=== PATIENT | female | born 1965 | race Two or more races ===

== ENCOUNTER 2016-05-06 09:05 | Day surgery (SDC) | payer OTHER ==
[~2016-05-06 09:05] MED LIST: IV START KIT ONE; LACTATED RINGERS 1,000 ML IV SCH
[2016-05-06] MEDS ORDERED: PROPOFOL 20 ML IV ONE ×2 (09:52→10:04)
== END 2016-05-06 14:55 | disposition home or self-care (01) ==
LOC: SDC 09:05
PROVIDERS: ATTEND Internal Medicine Gastroenterology
PROC: 0DJD8ZZ Inspection of Lower Intestinal Tract, Via Natural or Artificial Opening Endoscopic (ICD-10-PCS; principal; 2016-05-06)
DX: Z12.11 Encounter for screening for malignant neoplasm of colon (principal); K57.30 Diverticulosis of large intestine without perforation or abscess without bleeding; Z72.0 Tobacco use; I10 Essential (primary) hypertension; E78.5 Hyperlipidemia, unspecified; F43.12 Post-traumatic stress disorder, chronic; F41.9 Anxiety disorder, unspecified; F32.9 Major depressive disorder, single episode, unspecified
CPT/HCPCS: 45378; J7120